=== PATIENT | female | born 1945 | race Caucasian/White ===

== ENCOUNTER 2016-09-26 12:41 | Emergency (ER) | payer OTHER ==
--- NOTE | 2016-09-26 13:57 | DIAGNOSTIC IMAGING REPORT ---
PROCEDURE: XR CHEST 1 VIEW INDICATION: NEAR-SYNCOPE TECHNIQUE: Portable AP view 01:49 p.m. COMPARISON: Chest 07/26/14 FINDINGS: Lungs are clear. Heart and mediastinum are normal. Thorax is normal. IMPRESSION: 1. Negative chest.
--- NOTE | 2016-09-26 15:19 | ED NURSING NOTES ---
Clinical Report - Nurses [facility] [place] [address] 09/26/2016 12:42 Patient: WENDY BRIAN TRIAGE Triage time late entry - 12:42. Acuity: LEVEL 2. Chief Complaint: (pre syncope). SEPSIS SCREEN: Sepsis Screen. Negative (no infection suspected/documented). --12:58 Erinn Leroy R.N. 12:51 09/26/16. BP: 191/78. HR: 78. RR: 16. O2 saturation: 100%. Temp: 98.5 F. Pain level now: 0/10. --12:58 Erinn Leroy R.N. Weight: 65.7 kg stated. Height/Length: 64 inches Per Patient. BMI: 24.9. --12:56 Erinn Leroy R.N. Allergies Sulfa Antibiotics. --12:54 Erinn Leroy R.N. Aleve. --12:54 Erinn Leroy R.N. Toprol XL. --12:55 Erinn Leroy R.N. History Arrived by EMS, and from work. Historian: patient. This started just prior to arrival. ( Pt was at work when she felt dizzy and light-headed, grabbed the counter and lowered herself into the chair where she sat for a period of time and continued to feel "off" 911 was called and she was transported for eval.). 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 See EMS report. PAST MEDICAL HX: Hypertension. ( Lupus). SOCIAL HX: Alcohol use; consumes beer occasionally. No drug use. No infectious disease exposure. ABUSE ASSESSMENT: No report of abuse. SELF HARM ASSESSMENT: A self harm assessment was performed. The patient answered "no" to the question "Do you have thoughts of harming or killing yourself?". NUTRITIONAL RISK ASSESSMENT: The nutritional risk assessment revealed no deficiencies. FUNCTIONAL ASSESSMENT: Functional assessment: no impairments noted. LEARNING NEEDS ASSESSMENT: The learning needs assessment revealed no barriers. SKIN INTEGRITY ASSESSMENT: Skin integrity risk assessment completed. No skin integrity risk identified. --12:58 Erinn Leroy R.N. Interventions ID band on patient. --12:58 Erinn Leroy R.N. NURSING PROGRESS NOTES EKG time: (1300). EKG was performed by a tech and shown to the ED physician. --13:33 Cindi Mercer 13:50 09/26/2016 Site #1 started via IV in the left wrist with an 22g angiocath; one attempt. Blood drawn: rainbow set. Labeled in the presence of the patient and sent to the lab. --13:50 Familia Montelongo R.N. 13:50 09/26/2016 Started IV Fluids IV NS (Saline); bolus of 1000 mL wide open via site #1. Allergies verified and confirmed 5 rights. IV patency established. IV site checked: no pain, redness, or swelling. IV flushed thoroughly pre- and post-medication administration. --13:50 Familia Montelongo R.N. 13:57 assisted pt to amb to BR and back to bed; pt denied being dizzy or lightheaded. --13:58 Laly See R.N. 13:58 09/26/16. :patient confirmed. Clean catch urine collected; sample sent to lab. Specimen labeled in the presence of the patient. --13:58 Laly See R.N. ( Pt. assisted to the bathroom. Walked without difficulty or dizziness.). --15:16 Erinn Leroy R.N. 15:31 09/26/2016 Macrobid PO 100 mg given. Allergies verified and confirmed 5 rights. --15:31 Familia Montelongo R.N. DISPOSITION / DISCHARGE 15:41 09/26/2016 Site #1 removed upon discharge. Catheter intact. Bandaid applied. --15:41 Familia Montelongo R.N. No learning barriers present. Discharge instructions provided and reviewed with the patient. Reviewed medication(s) side effects, precautions, dosing and course information. Prescription(s) given to the patient. Reviewed fever care instructions (antibiotics). Reviewed referral to a primary care physician. Patient verbalized understanding. Written instructions provided in Solomon Islander. The patient was discharged home and accompanied by mediator. She left the Emergency Department ambulatory and via private vehicle. Spouse driving. --15:42 Familia Montelongo R.N. 15:40 09/26/16. BP: 168/70. HR: 80. RR: 16. O2 saturation: 100%. Temp: 98.2 F. Pain level now 0/10. --15:42 Familia Montelongo R.N. FALL RISK ASSESSMENT: Fall risk assessment completed. No fall risk identified. --15:42 Familia Montelongo R.N. The goals identified in the patient's plan of care were met. --15:42 Familia Montelongo R.N. Departure time: 1542 PM. --15:42 Familia Montelongo R.N. 15:43 09/26/2016 IV Fluids IV NS Discontinued: bag #1 infused upon discharge. Total amount infused: 800 mL. IV patency established. IV site checked: no pain, redness, or swelling. IV flushed thoroughly. --15:43 Familia Montelongo R.N. Locked/Released at 09/26/2016 15:43 by Familia Montelongo R.N.
--- NOTE | 2016-09-26 15:19 | ED CLINICAL REPORT ---
Clinical Report - Physicians/Mid Levels [facility] [address] [place] [address] 09/26/2016 12:42 Patient: WENDY BRIAN Time Seen: 1248. Arrived- By ambulance. Historian- patient and EMS personnel. HISTORY OF PRESENT ILLNESS The patient has recovered. Chief Complaint: NEAR-SYNCOPE. This occurred about 1 hour ago. Event was witnessed. The patient had preceding symptoms of light-headedness. No preceding symptoms of nausea, dim vision, chest pain, warmth or abdominal pain. At time of event, she was standing. The patient felt faint. No loss of consciousness, seizure activity, incontinence or apnea noted. Did not lose pulse. Had a single episode. The episode lasted seconds. No injuries noted. She currently has generalized weakness. (Pt states she was making lunch at work, turned around, and suddenly felt faint. Pt finished making her lunch, and sat down to eat, which helped, but pt still felt a little shaky. She states that she began to feel better en-route, after co-workers convinced her to come in. Pt states that now, she mainly feels anxious.). Similar symptoms previously: ( Pt has a h/o a. fib, and has had occasional, milder sx like this.). Recent medical care: The patient was seen recently at this facility in the emergency department. REVIEW OF SYSTEMS No headache, chest pain, palpitations, abdominal pain or vomiting. No diarrhea, black stools, numbness, bloody stools or fever. No sore throat, difficulty breathing, difficulty with urination, skin rash or enlarged lymph nodes. No cough or joint pain. The patient has had mild transient dizziness described as a light-headedness. She has had generalized weakness. All systems otherwise negative, except as recorded above. PAST HISTORY Problems: Palpitations. Atrial Fibrillation. Anxiety Reaction. Immunizations. LNMP - Last Normal Menstrual Period. Raynaud's Phenomenon. Lupus. Hypertension. Additional Surgeries: Adenoidectomy. Cholecystectomy. Tonsillectomy. Allergies: Aleve. Sulfa Antibiotics. Toprol XL. SOCIAL HISTORY Never smoker. No alcohol use or drug use. ADDITIONAL NOTES The nursing notes have been reviewed. PHYSICAL EXAM Vital Signs: 09/26/2016 12:51 BP: 191/78. HR: 78. RR: 16. O2 saturation: 100%. Temp: 98.5 F. Pain level now: 0/10. Have been reviewed. Appearance: Alert. No acute distress. Eyes: Pupils equal, round and reactive to light. No nystagmus. Extraocular movements normal. ENT: Normal ENT inspection. Moist mucous membranes. Neck: Normal inspection. Neck supple. CVS: Normal heart rate and rhythm. Heart sounds normal. Pulses normal. Respiratory: No respiratory distress. Breath sounds normal. Abdomen: Soft and nontender. Back: Normal inspection. No CVA tenderness. Skin: Skin warm and dry. Normal skin color. No rash. Normal skin turgor. Extremities: Extremities exhibit normal ROM. No lower extremity edema. Neuro: Alert. Oriented X 3. Mood/affect normal. Speech normal. Cranial nerves normal (as tested). No cerebellar findings. No motor deficit. No sensory deficit. LABS, X-RAYS, AND EKG EKG: EKG time: (1300). No acute ischemia. Normal sinus rhythm. Rate: 74. Normal P waves. Normal JOSÉ. Normal QRS complex. Normal axis. Normal QT and QTc. Non-specific ST segment / T wave abnormalities. Prior EKG unavailable. The study has been interpreted contemporaneously by me. The study has been independently viewed by me. The EKG appears to be a good tracing. I agree with and confirm the computer reading of the EKG. Rhythm Strip #1: Time: (13:03). Rate= 72. Normal sinus rhythm. Regular rhythm. Narrow QRS complexes. No ectopy. Conduction normal. Normal ST segments and T waves. The study was interpreted by me. Chest X-ray: No acute disease. Normal lung markings present. Normal heart size. Mediastinum normal. Great vessels normal. Soft tissues normal. No infiltrate. No fracture. No bony lesion present. Views: AP (portable). Technique: good. The X-rays were independently viewed by me, interpreted by the radiologist and contemporaneously by me and discussed with the radiologist. Prior films were not available for comparison. Laboratory Tests: UA-Culture if indicated: (ABELARDO: 09/26/2016 13:45) ( MsgRcvd 09/26/2016 15:03) Final results Test Result Flag Units (Reference) URINE COLOR YELLOW URINE APPEARANCE CLEAR URINE GLUCOSE NEGATIVE (NEGATIVE) URINE BILIRUBIN NEGATIVE (NEGATIVE) URINE KETONE NEGATIVE (NEGATIVE) URINE SPECIFIC GRAVITY <= 1.005 L (1.010-1.030) URINE PH 6.0 (5.0-8.0) URINE PROTEIN NEGATIVE (NEGATIVE) URINE UROBILINOGEN 0.2 EU/dL (0.2-1.0) URINE NITRITE NEGATIVE (NEGATIVE) URINE BLOOD NEGATIVE (NEGATIVE) URINE LEUK ESTERASE POSITIVE (NEGATIVE) URINE RBC NONE SEEN rbc/hpf (0-1) URINE WBC 1-3 wbc/hpf (0-1) URINE EPITHELIAL CELLS 0-1 EPI/hpf (0-5) URINE BACTERIA NONE SEEN (NONE SEEN) URINE COMMENT CULTURE INDICATED This is a corrected result 09/26/16 1502:URINE COMMENT previously reported as: CULT NOT INDICATEDURINE CULTURES ARE SET-UP BASED ON THE FOLLOWING CRITERIA:POSITIVE NITRITEPOSITIVE LEUKOCYTE ESTERASEGREATER THAN 10 WHITE BLOOD CELLSMODERATE (2+) OR GREATER BACTERIA CBC w Diff: (ABELARDO: 09/26/2016 13:05) ( MsgRcvd 09/26/2016 14:48) Final results Test Result Flag Units (Reference) WHITE BLOOD COUNT 4.2 L K/uL (4.5-11.5) RED BLOOD COUNT 4.74 M/uL (4.00-5.20) HEMOGLOBIN 14.1 gm/dL (12.0-16.0) HEMATOCRIT 42.6 % (36.0-46.0) MEAN CELL VOLUME 90 fL (80-100) MEAN CORPUSCULAR HGB 30 pg (26-34) MEAN CORPUSCULAR HGB CONC 33 g/dL (31-37) RED CELL DISTRIBUTION WIDTH 13.3 % (11.6-14.8) PLATELET COUNT 227 K/uL (150-400) NEUTROPHIL % 64.8 % (50-75) LYMPH % 21.9 L % (25-40) MONO % 9.5 % (3-14) EOSINOPHIL % 3.3 % (0-4) BASOPHIL % 0.5 % (0-2) CHEM 13 PANEL: (ABELARDO: 09/26/2016 13:05) ( MsgRcvd 09/26/2016 15:06) Final results Test Result Flag Units (Reference) GLUCOSE 127 H mg/dL (70-110) BUN 9 mg/dL (7-18) CREATININE 0.7 mg/dL (0.6-1.3) Estimated GFR >60 mL/min Estimated GFR- >60 mL/min Note: Persistent reduction over 3 months in eGFR<60 mL/min/1.73 m2 defines CKD. Patients with eGFR values>=60 mL/min/1.73 m2 may also have CKD if evidence ofpersistent proteinuria. Additional information may be foundat www.kidney.org. SODIUM 140 mmol/L (136-145) POTASSIUM 3.6 mmol/L (3.5-5.1) CHLORIDE 104 mmol/L (98-107) CARBON DIOXIDE 26 mmol/L (21-32) CALCIUM 9.6 mg/dL (8.5-10.1) TOTAL PROTEIN 7.8 g/dL (6.4-8.2) ALBUMIN 4.1 g/dL (3.3-5.0) BILIRUBIN, TOTAL 0.3 mg/dL (0.0-1.0) ALKALINE PHOSPHATASE 72 U/L (46-116) AST (SGOT) 19 U/L (15-37) ALT (SGPT) 23 U/L (12-78) MAGNESIUM 2.0 mg/dL (1.8-2.4) CPK 40 U/L (24-260) TROPONIN I <0.05 L ng/mL (0.00-1.5) TROPONIN REFERENCE RANGE:<0.1 NEGATIVE0.1-1.5 INDETERMINANT>1.5 POSITIVE . Pulse Oximetry: 09/26/2016 12:51 O2 saturation: 100%. (FIO2 - room air). Interpretation: normal. PROGRESS AND PROCEDURES Course of Care: Pt was feeling better by the time of arrival in the ED, but I did feel she should be worked up for her syncopal episode. Work-up did reveal a UTI, and pt was treated for this with Macrobid. She was also given a liter of NS. Patient counseled in person regarding the patient's stable condition, test results, diagnosis and need for follow-up. Concerns were addressed. Old medical records reviewed. Disposition: Discharged. Condition: stable and improved. CLINICAL IMPRESSION Near syncope .12 lead EKG performed. Acute urinary tract infection with cystitis. INSTRUCTIONS Drink plenty of fluids. (Your blood work and EKG look good. Your urinalysis shows a urinary tract infection, for which you have been started on antibiotics.). Prescription Medications: Macrobid 100 mg: take 1 capsule orally every 12 hours for 7 days. No refill. Substitution is permissible. Follow-up: Follow up with your doctor in seven days if not better. Understanding of the discharge instructions verbalized by patient. (Electronically signed by Mary Crowley MD 09/30/2016 12:38)
--- NOTE | 2016-09-26 15:19 | ED ORDER SUMMARY ---
..... Patient: WENDY BRIAN OrderSheet [facility] VisitID: [id number] [place] [address] 71y, F Registration Date/Time: 09/26/2016 ORDER SHEET Weight: 65.7 kg (stated) Allergies: Sulfa Antibiotics, Aleve, Toprol XL GENERAL ORDERS: Chest 1V Urgent (13:43 09/26/2016 Pedrito REVELES) (13:50 HOShaughnessy R.N.) Pepper Cutter (Continuous) (13:43 09/26/2016 Pedrito REVELES) (13:50 HOShaughnessy R.N.) Cardiac Panel Stat (13:44 09/26/2016 Pedrito REVELES) (13:50 HOShaughnessy R.N.) BNP Urgent (13:44 09/26/2016 Pedrito REVELES) (13:50 HOShaughnessy R.N.) Pulse oximeter (13:44 09/26/2016 Pedrito REVELES) (13:50 HOShaughnessy R.N.) EKG - ER Stat (13:44 09/26/2016 Pedrito REVELES) (13:45 RKaruga) (13:50 HOShaughnessy R.N.) UA-Culture if indicated Urgent (13:44 09/26/2016 Pedrito REVELES) (13:50 HOShaughnessy R.N.) MEDICATION ORDERS: Macrobid PO 100 mg (NOW) (15:12 09/26/2016 Pedrito REVELES) (15:31 HOShaughnessy R.N.) IV FLUIDS: IV NS : initial bolus 1000 mL (1000 mL/hr), then none - (NOW) (13:43 09/26/2016 Pedrito REVELES) (13:50 HOShaughnessy R.N.) ORDER SHEET NOTES: [Electronically signed by Familia Montelongo R.N. (15:43 09/26/2016)] [Electronically signed by Mary Crowley MD (12:37 09/30/2016)] [Electronically locked/signed by Familia Montelongo R.N. (15:43 09/26/2016)]
--- NOTE | 2016-09-26 15:19 | ED NURSING NOTES ---
Clinical Report - Nurses [facility] [place] [address] 09/26/2016 12:42 Patient: WENDY BRIAN TRIAGE Triage time late entry - 12:42. Acuity: LEVEL 2. Chief Complaint: (pre syncope). SEPSIS SCREEN: Sepsis Screen. Negative (no infection suspected/documented). --12:58 Erinn Leroy R.N. 12:51 09/26/16. BP: 191/78. HR: 78. RR: 16. O2 saturation: 100%. Temp: 98.5 F. Pain level now: 0/10. --12:58 Erinn Leroy R.N. Weight: 65.7 kg stated. Height/Length: 64 inches Per Patient. BMI: 24.9. --12:56 Erinn Leroy R.N. Allergies Sulfa Antibiotics. --12:54 Erinn Leroy R.N. Aleve. --12:54 Erinn Leroy R.N. Toprol XL. --12:55 Erinn Leroy R.N. History Arrived by EMS, and from work. Historian: patient. This started just prior to arrival. ( Pt was at work when she felt dizzy and light-headed, grabbed the counter and lowered herself into the chair where she sat for a period of time and continued to feel "off" 911 was called and she was transported for eval.). 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 See EMS report. PAST MEDICAL HX: Hypertension. ( Lupus). SOCIAL HX: Alcohol use; consumes beer occasionally. No drug use. No infectious disease exposure. ABUSE ASSESSMENT: No report of abuse. SELF HARM ASSESSMENT: A self harm assessment was performed. The patient answered "no" to the question "Do you have thoughts of harming or killing yourself?". NUTRITIONAL RISK ASSESSMENT: The nutritional risk assessment revealed no deficiencies. FUNCTIONAL ASSESSMENT: Functional assessment: no impairments noted. LEARNING NEEDS ASSESSMENT: The learning needs assessment revealed no barriers. SKIN INTEGRITY ASSESSMENT: Skin integrity risk assessment completed. No skin integrity risk identified. --12:58 Erinn Leroy R.N. Interventions ID band on patient. --12:58 Erinn Leroy R.N. NURSING PROGRESS NOTES EKG time: (1300). EKG was performed by a tech and shown to the ED physician. --13:33 Cindi Mercer 13:50 09/26/2016 Site #1 started via IV in the left wrist with an 22g angiocath; one attempt. Blood drawn: rainbow set. Labeled in the presence of the patient and sent to the lab. --13:50 Familia Montelongo R.N. 13:50 09/26/2016 Started IV Fluids IV NS (Saline); bolus of 1000 mL wide open via site #1. Allergies verified and confirmed 5 rights. IV patency established. IV site checked: no pain, redness, or swelling. IV flushed thoroughly pre- and post-medication administration. --13:50 Familia Montelongo R.N. 13:57 assisted pt to amb to BR and back to bed; pt denied being dizzy or lightheaded. --13:58 Laly See R.N. 13:58 09/26/16. :patient confirmed. Clean catch urine collected; sample sent to lab. Specimen labeled in the presence of the patient. --13:58 Laly See R.N. ( Pt. assisted to the bathroom. Walked without difficulty or dizziness.). --15:16 Erinn Leroy R.N. 15:31 09/26/2016 Macrobid PO 100 mg given. Allergies verified and confirmed 5 rights. --15:31 Familia Montelongo R.N. DISPOSITION / DISCHARGE 15:41 09/26/2016 Site #1 removed upon discharge. Catheter intact. Bandaid applied. --15:41 Familia Montelongo R.N. No learning barriers present. Discharge instructions provided and reviewed with the patient. Reviewed medication(s) side effects, precautions, dosing and course information. Prescription(s) given to the patient. Reviewed fever care instructions (antibiotics). Reviewed referral to a primary care physician. Patient verbalized understanding. Written instructions provided in [place]bourger. The patient was discharged home and accompanied by breakfast attendant. She left the Emergency Department ambulatory and via private vehicle. Spouse driving. --15:42 Familia Montelongo R.N. 15:40 09/26/16. BP: 168/70. HR: 80. RR: 16. O2 saturation: 100%. Temp: 98.2 F. Pain level now 0/10. --15:42 Familia Montelongo R.N. FALL RISK ASSESSMENT: Fall risk assessment completed. No fall risk identified. --15:42 Familia Montelongo R.N. The goals identified in the patient's plan of care were met. --15:42 Familia Montelongo R.N. Departure time: 1542 PM. --15:42 Familia Montelongo R.N. 15:43 09/26/2016 IV Fluids IV NS Discontinued: bag #1 infused upon discharge. Total amount infused: 800 mL. IV patency established. IV site checked: no pain, redness, or swelling. IV flushed thoroughly. --15:43 Familia Montelongo R.N. Locked/Released at 09/26/2016 15:43 by Familia Montelongo R.N.
--- NOTE | 2016-09-26 15:19 | ED ORDER SUMMARY ---
..... Patient: WENDY BRIAN OrderSheet [facility] VisitID: [id number] [place] [address] 71y, F Registration Date/Time: 09/26/2016 ORDER SHEET Weight: 65.7 kg (stated) Allergies: Sulfa Antibiotics, Aleve, Toprol XL GENERAL ORDERS: Chest 1V Urgent (13:43 09/26/2016 Pedrito REVELES) (13:50 HOShaughnessy R.N.) Client Development Manager (Continuous) (13:43 09/26/2016 Pedrito REVELES) (13:50 HOShaughnessy R.N.) Cardiac Panel Stat (13:44 09/26/2016 Pedrito REVELES) (13:50 HOShaughnessy R.N.) BNP Urgent (13:44 09/26/2016 Pedrito REVELES) (13:50 HOShaughnessy R.N.) Pulse oximeter (13:44 09/26/2016 Pedrito REVELES) (13:50 HOShaughnessy R.N.) EKG - ER Stat (13:44 09/26/2016 Pedrito REVELES) (13:45 RKaruga) (13:50 HOShaughnessy R.N.) UA-Culture if indicated Urgent (13:44 09/26/2016 Pedrito REVELES) (13:50 HOShaughnessy R.N.) MEDICATION ORDERS: Macrobid PO 100 mg (NOW) (15:12 09/26/2016 Pedrito REVELES) (15:31 HOShaughnessy R.N.) IV FLUIDS: IV NS : initial bolus 1000 mL (1000 mL/hr), then none - (NOW) (13:43 09/26/2016 Pedrito REVELES) (13:50 HOShaughnessy R.N.) ORDER SHEET NOTES: [Electronically signed by Familia Montelongo R.N. (15:43 09/26/2016)] [Electronically signed by Mary Crowley MD (12:37 09/30/2016)] [Electronically locked/signed by Familia Montelongo R.N. (15:43 09/26/2016)]
--- NOTE | 2016-09-30 12:38 | ED MAR SUMMARY ---
..... Medication Administration Record [facility] [address] [place] [address] Patient: WENDY BRIAN Visit ID: [id number] 71y, F Weight: 65.7 kg Height/Length: 64 in BMI: 24.9 ALLERGIES: Aleve, Sulfa Antibiotics, Toprol XL Start 13:50 09/26/2016 Familia Montelongo R.N., Stop 15:43 09/26/2016 Familia Montelongo R.N. Medication Administered: IV NS (SALINE), Dose: IV Fluids, Bolus: 1000 mL wide open, Site: #1 left wrist. Medication Ordered: IV NS : initial bolus 1000 mL (1000 mL/hr), then none - (NOW). Given 15:31 09/26/2016 Familia Montelongo R.N. Medication Administered: MACROBID [PO], Dose: 100 mg PO. Medication Ordered: Macrobid PO 100 mg (NOW).
--- NOTE | 2016-09-30 12:38 | ED MED RECONCILIATION SUMMARY ---
Patient: WENDY BRIAN Medication Reconciliation Report [facility] VisitID: [id number] [address] [place] [address] 71y, F Registration Date/Time: 09/26/2016 Weight: 65.7 kg Height/Length: 64 in. BMI: 24.9 ALLERGIES: Aleve, Sulfa Antibiotics, Toprol XL The patient's Home Medications are listed below: Not obtained. The source(s) of the original Home Medication information: Not obtained. The following Medications were given to the patient in the Emergency Department: IV NS IV Fluids bolus 1000 mL wide open, administered: 09/26/2016 1:50:00 PM Macrobid [PO] PO 100 mg, administered: 09/26/2016 3:31:00 PM The following Medications were prescribed to the patient: Macrobid 100 mg: take 1 capsule orally every 12 hours for 7 days. No refill. Substitution is permissible. -- Mary Crowley MD
--- NOTE | 2016-09-30 12:38 | ED DISCHARGE INSTRUCTIONS ---
Patient: WENDY BRIAN General Instructions Located Within [facility] VisitID: [id number] [place] [address] 71y, F Registration Date/Time: 09/26/2016 Near syncope .12 lead EKG performed. Acute urinary tract infection with cystitis. INSTRUCTIONS Drink plenty of fluids. (Your blood work and EKG look good. Your urinalysis shows a urinary tract infection, for which you have been started on antibiotics.). Prescription Medications: Macrobid 100 mg: take 1 capsule orally every 12 hours for 7 days. No refill. Substitution is permissible. Follow-up: Follow up with your doctor in seven days if not better. Understanding of the discharge instructions verbalized by patient. ADDITIONAL INFORMATION Near-Fainting:Uncertain Cause Fainting (syncope) is a temporary loss of consciousness ("passing out"). It occurs when blood flow to the brain is reduced. Near-fainting ("near-syncope") is like fainting, but you do not fully "pass out." The common minor causes of near fainting include sudden fear, pain, emotional stress, overexertion, or quickly standing up after sitting or lying for a long time. The more serious causes for near fainting are due to either a very slow or very fast heart beat, dehydration, anemia, blood loss, problems related to the heart, or taking too much high blood pressure medicine. The exact cause of your episode is not certain. More tests may be required. Therefore, it is important that you follow up with your doctor as advised. Home Care: 1) Rest today. Resume your normal activities as soon as you are feeling back to normal. 2) If you become light-headed or dizzy, lie down right away or sit with your head between your knees. 3) Because we do not know the exact cause of your near fainting spell, another spell could occur without warning. Therefore, do not drive a car or use dangerous equipment. D o not take a bath alone (use a shower instead). Do not swim alone. You can resume these activities when your doctor says that you are no longer in danger of having a near fainting spell. 4) Stay well hydrated by drinking enough fluid each day. Follow Up with your doctor as instructed. Get Prompt Medical Attention if any of the following occur: -- Another fainting spell occurs, and it is not explained by the common causes listed above -- Chest, arm, neck, jaw, back or abdominal pain -- Shortness of breath -- Weakness, tingling or numbness in one side of the face, one arm or leg -- Slurred speech, confusion, trouble walking or seeing -- Seizure -- Blood in vomit, stools (black or red color) -- (In women) unexpected vaginal bleeding Bladder Infection,Female (Adult) A bladder infection ("cystitis" or "UTI") usually causes a constant urge to urinate and a burning when passing urine. Urine may be cloudy, smelly or dark. There may be pain in the lower abdomen. A bladder infection occurs when bacteria from the vaginal area enter the bladder opening (urethra). This can occur from sexual intercourse, wearing tight clothing, dehydration and other factors. Home Care: Drink lots of fluids (at least 6-8 glasses a day, unless you must restrict fluids for other medical reasons). This will force the medicine into your urinary system and flush the bacteria out of your body. Avoid sexual intercourse until your symptoms are gone. Avoid caffeine, alcohol and spicy foods. These can irritate the bladder. A bladder infection is treated with antibiotics. You may also be given Pyridium (generic = phenazopyridine) to reduce the burning sensation. This medicine will cause your urine to become a bright orange color. The orange urine may stain clothing. You may wear a pad or panty-liner to protect clothing. Preventing Future Infections: Always wipe from front to back after a bowel movement. Keep the genital area clean and dry. Drink plenty of fluids each day to avoid dehydration. Both sexual partners should wash before intercourse. Urinate right after intercourse to flush out the bladder. Wear cotton underwear and cotton-lined panty hose; avoid tight-fitting pants. If you are on control pills and are having frequent bladder infections, discuss with your doctor. Follow Up: Return to this facility or see your doctor if ALL symptoms are not gone after three days of treatment. Get Prompt Medical Attention if any of the following occur: Fever of 100.4F (38C) or higher, or as directed by your healthcare provider No improvement by the third day of treatment Increasing back or abdominal pain Repeated vomiting; unable to keep medicine down Weakness, dizziness or fainting Vaginal discharge Pain, redness or swelling in the labia (outer vaginal area) You have been given the following additional information: Near Syncope, Unknown Bladder Infection, Female (Adult) (Electronically signed by Mary Crowley MD 09/30/2016 12:38)
--- NOTE | 2016-09-30 12:38 | ED MED RECONCILIATION SUMMARY ---
Patient: WENDY BRIAN Medication Reconciliation Report [facility] VisitID: [id number] [address] [place] [address] 71y, F Registration Date/Time: 09/26/2016 Weight: 65.7 kg Height/Length: 64 in. BMI: 24.9 ALLERGIES: Aleve, Sulfa Antibiotics, Toprol XL The patient's Home Medications are listed below: Not obtained. The source(s) of the original Home Medication information: Not obtained. The following Medications were given to the patient in the Emergency Department: IV NS IV Fluids bolus 1000 mL wide open, administered: 09/26/2016 1:50:00 PM Macrobid [PO] PO 100 mg, administered: 09/26/2016 3:31:00 PM The following Medications were prescribed to the patient: Macrobid 100 mg: take 1 capsule orally every 12 hours for 7 days. No refill. Substitution is permissible. -- Mary Crowley MD
--- NOTE | 2016-09-30 12:38 | ED MAR SUMMARY ---
..... Medication Administration Record [facility] [address] [place] [address] Patient: WENDY BRIAN Visit ID: [id number] 71y, F Weight: 65.7 kg Height/Length: 64 in BMI: 24.9 ALLERGIES: Aleve, Sulfa Antibiotics, Toprol XL Start 13:50 09/26/2016 Familia Montelongo R.N., Stop 15:43 09/26/2016 Familia Montelongo R.N. Medication Administered: IV NS (SALINE), Dose: IV Fluids, Bolus: 1000 mL wide open, Site: #1 left wrist. Medication Ordered: IV NS : initial bolus 1000 mL (1000 mL/hr), then none - (NOW). Given 15:31 09/26/2016 Familia Montelongo R.N. Medication Administered: MACROBID [PO], Dose: 100 mg PO. Medication Ordered: Macrobid PO 100 mg (NOW).
== END 2016-09-26 15:40 | disposition home or self-care (01) ==
LOC: ED SRH 12:41
DX: R55 Syncope and collapse (principal); N30.00 Acute cystitis without hematuria; I10 Essential (primary) hypertension; I48.91 Unspecified atrial fibrillation; Z88.2 Allergy status to sulfonamides; Z88.6 Allergy status to analgesic agent
CPT/HCPCS: 90004; 90100; 90148; 90469; 90616; 91320; 92610; 92720; 95059